=== PATIENT | female | born 1930 | race Caucasian/White ===

== ENCOUNTER 2016-09-21 16:44 | Inpatient (IN) | payer MEDICARE, BC ==
[~2016-09-21] VITALS: Ht 149.9 cm; Wt 47.6 kg
--- NOTE | 2016-09-21 16:50 | NUR ---
PT BIB [facility] S/P WITNESSED ATRAUMATIC SYNCOPE. REPORTS NAUSEA PRIOR TO SYNCOPE BUT NO COMPLAINTS NOW. STATES "I FEEL FINE". NAD NOTED. RESP EVEN UNLABORED. SKIN WARM NONDIAPHORETIC. NO NEURO DEFICITS. IN ER BED 09 ON MONITOR.
[2016-09-21] MEDS ORDERED: SIMV10TA6 PO (17:15)
[2016-09-21] MEDS ORDERED: LATA2.5D7 EACHEYE (17:15)
[2016-09-21] MEDS ORDERED: LOSA1TAB36 PO (17:15)
[2016-09-21] MEDS ORDERED: CHOL100044 PO (17:18)
[2016-09-21] MEDS ORDERED: CALC500T52 PO (17:18)
[2016-09-21] MEDS ORDERED: MULT-659 PO (17:18)
[2016-09-21] MEDS ORDERED: ASPI81TA2 PO (17:18)
[2016-09-21 17:28] LABS: BASOPHILS # (AUTO) 0.1 /CMM (0.0-0.2); BASOPHILS % (AUTO) 0.7 % (0.0-2.0); EOSINOPHILS # (AUTO) 0.1 /CMM (0.0-0.7); EOSINOPHILS % (AUTO) 0.9 % (0.0-6.0); HEMATOCRIT 36 % (33-45); HEMOGLOBIN 12.4 g/dL (11.5-14.8); LYMPHOCYTES # (AUTO) 1.3 /CMM (0.8-4.8); LYMPHOCYTES % (AUTO) 11.2 % (20.0-44.0); MEAN CORPUSCULAR HEMOGLOBIN 32 PG (26.0-33.0); MEAN CORPUSCULAR HGB CONC 35 g/dl (31.0-36.0); MEAN CORPUSCULAR VOLUME 93 fL (82-100); MONOCYTES # (AUTO) 0.7 /CMM (0.1-1.30); MONOCYTES % (AUTO) 6.4 % (2.0-12.0); NEUTROPHILS # (AUTO) 9.3 /CMM (1.8-8.9); NEUTROPHILS % (AUTO) 80.8 % (43.0-81.0); PLATELET COUNT (AUTO) 228 /CMM (150-450); RDW COEFFICIENT OF VARIATION 13.7 (11.5-15.0); RED BLOOD CELL COUNT(AUTO) 3.83 MIL/uL (4.0-5.2); WHITE BLOOD COUNT (AUTO) 11.5 K/uL (4.3-11.0)
[2016-09-21] MEDS ORDERED: IV NS 0.9% 1,000 ML BAG IV ONE ×2 (17:30→18:30)
[2016-09-21] MEDS ORDERED: IV NS 0.9% 1,000 ML ONE ×2 (17:30→18:46)
[2016-09-21] MEDS ORDERED: IV SET PRIMARY 1 EA INFUS.SET MC ONE ×2 (17:30→18:46)
--- NOTE | 2016-09-21 17:39 | NUR ---
TRANSPORTED TO CT IN STABLE CONDITION. NAD NOTED. VSS.
[2016-09-21 17:44] LABS: CALCIUM, SERUM 8.2 mg/dL (8.5-10.1); CARBON DIOXIDE 26 mmol/L (21-32); CHLORIDE 106 mmol/L (98-107); CREATININE 1.2 mg/dL (0.6-1.3); GLUCOSE 116 mg/dL (74-106); INR 0.95 (0.87-1.13); POTASSIUM 4.2 mmol/L (3.5-5.1); PROTHROMBIN TIME 9.9 SECS (9.5-12.7); SODIUM SERUM 138 mmol/L (136-145); UREA NITROGEN, BLOOD 28 mg/dL (7-18)
[2016-09-21 18:13] LABS: TROPONIN I < 0.017 ng/mL (0.00-0.056)
--- NOTE | 2016-09-21 18:34 | NUR ---
RESTING QUIETLY, NAD NOTED. VSS. SON AT BEDSIDE.
--- NOTE | 2016-09-21 18:49 | NUR ---
CALLED [employer] HE[facility] SYSTEMS ANALYST WAS PAGED.
--- NOTE | 2016-09-21 19:34 | NUR ---
REPORT GIVEN TO RVI RN FOR ADMISSION
--- NOTE | 2016-09-21 19:59 | NUR ---
CALLED [facility] STUDENT SUCCESS COACH WAS REPAGED.
--- NOTE | 2016-09-21 20:08 | NUR ---
[facility] CALLED BACK; SPOKE WITH VICTORIA MARTÍNEZ
[2016-09-21 20:15] VITALS: BP 157/65
[2016-09-21 20:20] VITALS: BP 157/65
--- NOTE | 2016-09-21 20:20 | NUR ---
RN NOTES RECEIVED PATIENT FROM ER FOR DX SYNCOPE. AO X 3, ABLE TO MAKE NEEDS KNOWN. NO SIGNS OF ACUTE DISTRESS NOTED. DENIES ANY PAIN, DIZZINESS, LIGHTHEADEDNESS AT THIS TIME. IV SITE PATENT, INTACT; FLUSHED. SKIN INTACT. ON LOW BED WITH BILATERAL UPPER SIDE RAILS UP. CALL LIGHT WITHIN EASY REACH. SAFETY REMINDERS GIVEN. WAITING FOR ADMITTING ORDERS. WILL CONTINUE TO MONITOR.
--- NOTE | 2016-09-21 20:20 | NUR ---
PT TRANSPORTED TO [facility] IN STABLE CONDITION VIA ACLS PROTOCOL. VSS. NAD NOTED. SON AT BEDSIDE.
[2016-09-21] MEDS ORDERED: IV NS 0.9% 1,000 ML IV PRN (21:08)
[2016-09-21] MEDS ORDERED: MAG HYDROX/AL HYDROX/SIMETH 30 ML UDC PO PRN (21:30)
[2016-09-21] MEDS ORDERED: Z GUARD REMEDY 2 OZ OINT TP PRN (21:30)
[2016-09-21] MEDS ORDERED: HYDROCODONE/APAP 5/325MG 1 EACH TABLET PO PRN (21:30)
[2016-09-21] MEDS ORDERED: MAGNESIUM HYDROXIDE 30 ML UDC PO PRN (21:30)
[2016-09-21] MEDS ORDERED: ONDANSETRON HCL/PF 4 MG/2 ML VIAL IVP PRN (21:30)
[2016-09-22] VITALS (8 sets, daily range): BP systolic 125–148; BP diastolic 66–80
[2016-09-22 03:22] LABS: BASOPHILS # (AUTO) 0.1 /CMM (0.0-0.2); BASOPHILS % (AUTO) 0.6 % (0.0-2.0); EOSINOPHILS # (AUTO) 0.2 /CMM (0.0-0.7); EOSINOPHILS % (AUTO) 2.3 % (0.0-6.0); HEMATOCRIT 38 % (33-45); LYMPHOCYTES # (AUTO) 2.6 /CMM (0.8-4.8); LYMPHOCYTES % (AUTO) 26.1 % (20.0-44.0); MEAN CORPUSCULAR HEMOGLOBIN 31 PG (26.0-33.0); MEAN CORPUSCULAR HGB CONC 34 g/dl (31.0-36.0); MEAN CORPUSCULAR VOLUME 93 fL (82-100); MONOCYTES # (AUTO) 0.9 /CMM (0.1-1.30); MONOCYTES % (AUTO) 9.4 % (2.0-12.0); NEUTROPHILS # (AUTO) 6.2 /CMM (1.8-8.9); NEUTROPHILS % (AUTO) 61.6 % (43.0-81.0); PLATELET COUNT (AUTO) 229 /CMM (150-450); RDW COEFFICIENT OF VARIATION 14.9 (11.5-15.0); RED BLOOD CELL COUNT(AUTO) 4.13 MIL/uL (4.0-5.2)
[2016-09-22 03:34] LABS: CALCIUM, SERUM 8.9 mg/dL (8.5-10.1); CARBON DIOXIDE 30 mmol/L (21-32); CHLORIDE 106 mmol/L (98-107); CREATININE 0.9 mg/dL (0.6-1.3); GLUCOSE 98 mg/dL (74-106); MAGNESIUM 1.8 mg/dL (1.8-2.4); PHOSPHORUS 3.8 mg/dL (2.5-4.9); POTASSIUM 4.1 mmol/L (3.5-5.1); SODIUM SERUM 139 mmol/L (136-145); UREA NITROGEN, BLOOD 25 mg/dL (7-18)
--- NOTE | 2016-09-22 06:57 | NUR ---
RN NOTES PATIENT ASLEEP, EASILY AROUSABLE. RESPIRATIONS EVEN. NO SIGNS OF PAIN NOTED. SAFETY PRECAUTIONS AND COMFORT MEASURES IN PLACE. WILL GIVE REPORT TO DAY SHIFT FOR CONTINUITY OF CARE.
--- NOTE | 2016-09-22 07:40 | NUR ---
DIE POLISHER OPEN NOTES RECEIVED REPORT FROM TIRE ADJUSTER NURSE. PATIENT IS IN BED, ALERT AND ORIENTED TO NAME, PLACE AND TIME. NO SIGNS AND SYMPTOMS OF DISTRESS. DENIED PAIN. BED IN LOW POSITION, LOCKED AND 2 SIDE RAILS ARE UP. WILL CONTINUE TO MONITOR ANS ASSESS PATIENT CONDITION THROUGH OUT MY SHIFT
[2016-09-22 08:38] LABS: THYROID STIMULATING HORMONE 1.186 uIU/mL (0.358-3.74)
[2016-09-22] MEDS ORDERED: SIMVASTATIN 10 MG TABLET PO SCH (09:00)
--- NOTE | 2016-09-22 09:00 | NUR ---
LIPITOR NOT ADMINISTERED. PM MEDS. WILL NOTIFY
[2016-09-22] MEDS: IV NS 0.9% 1,000 ML IV PRN ×2 (09:03→14:38)
[2016-09-22] MEDS: ASPIRIN 81 MG TAB.CHEW PO SCH (09:05)
[2016-09-22] MEDS: PANTOPRAZOLE 40 MG TABLET.DR PO SCH (09:06)
[2016-09-22] MEDS: CALCIUM CARBONATE (1250) 500 MG TABLET PO SCH (09:06)
[2016-09-22] MEDS: CHOLECALCIFEROL 1,000 UNIT TABLET (VIT D3) PO SCH (09:06)
[2016-09-22] MEDS: HEPARIN SODIUM, PORCINE 5000 UNITS/1 ML VIAL SQ SCH ×2 (09:13→21:30)
[2016-09-22] MEDS: ACETAMINOPHEN 325 MG TABLET PO PRN ×2 (09:23→16:26)
--- NOTE | 2016-09-22 10:22 | NUR ---
GLASS BEVELER NOTES DC TELEMETRY PER DR. CORNELL.
[2016-09-22] MEDS ORDERED: hydrALAZINE HCL 25 MG TABLET PO PRN (13:30)
[2016-09-22] MEDS ORDERED: SOD FERRIC GLUC 125 MG in IV NS 0.9% 100 ML IV SCH (14:00)
[2016-09-22] MEDS ORDERED: SECONDARY IV SET 1 EA INFUS.SET MC ONE (14:39)
[2016-09-22 16:29] LABS: APPEARANCE,URINE CLEAR (CLEAR); BILIRUBIN,URINE NEGATIVE (NEGATIVE); BLOOD, URINE NEGATIVE Ery/uL (NEGATIVE); COLOR,URINE YELLOW (YELLOW); KETONES,URINE NEGATIVE (NEGATIVE); LEUKOCYTE ESTERASE ,URINE NEGATIVE (NEGATIVE); NITRITE, URINE NEGATIVE (NEGATIVE); PH,URINE 5.5 (5.0-8.0); PROTEIN,URINE NEGATIVE (NEGATIVE); UGLUCOSE NEGATIVE (NEGATIVE); UROBILINOGEN,URINE 0.2 EU/dL (0.2)
[2016-09-22] MEDS ORDERED: LATANOPROST EYE DROP 0.005% 2.5 ML BOTTLE EACHEYE SCH (18:00)
--- NOTE | 2016-09-22 18:48 | NUR ---
RN CLOSING NOTES PATIENT IS IN BED. ALERT AND ORIENTED TO NAME, PLACE AND TIME. NO SIGNS AND SYMPTOMS OF DISTRESS. ALL NURSING NEEDS ANTICIPATED. PATIENT KEPT CLEAN AND DRY. DENIED PAIN. BED IN LOW POSITION, LOCKED AND TWO SIDE RAILS ARE UP. IV SITE IS INTACT AND PATENT. CAROTIS FUPLEX AND ECHO COMPLETED, RESULTS ARE PENDING. WILL ENDORSE TO SAFETY SCIENTIST NURSE Addendum: 09/22/16 at 1853 by ALMA ROBBINS RN TYPO CORRECTION: CAROTID DUPLEX AND ECHO COMPLETED, RESULTS ARE PENDING.
--- NOTE | 2016-09-22 19:35 | NUR ---
MS/RN NOTES RECEIVED PT. LYING IN BED. AWAKE, ALERT AND ORIENTED X3. BREATHING EVEN AND UNLABORED ON ROOM AIR. NO SOB, RESPIRATORY DISTRESS OR COMPLAINTS OF PAIN NOTED AT THIS TIME. PT. WITH LEFT FOREARM 22 GAUGE PERIPHERAL IV PRESENT, PATENT AND INTACT ADMINISTERING TO PT. NS @ 200ML/HR. BED IN LOWEST POSITION, SIDE RAILS UP X2, CALL LIGHT WITHIN REACH, WILL CONTINUE TO MONITOR.
[2016-09-22] MEDS: SIMVASTATIN 10 MG TABLET PO SCH (21:29)
--- NOTE | 2016-09-23 06:25 | NUR ---
MS/RN NOTES PT. LYING IN BED RESTING. BREATHING EVEN AND UNLABORED ON ROOM AIR. NO SOB, RESPIRATORY DISTRESS OR COMPLAINTS OF PAIN NOTED AT THIS TIME. PT. WITH LEFT FOREARM 22 GAUGE IV SALINE LOCK PRESENT, PATENT AND INTACT. ALL PT. NEEDS MET. BED IN LOWEST POSITION, SIDE RAILS UP X2, CALL LIGHT WITHIN REACH, WILL ENDORSE TO DAYSHIFT NURSE FOR CONTINUITY OF CARE.
--- NOTE | 2016-09-23 07:15 | NUR ---
MS RN NOTES RECEIVED PATIENT IN BED, A/O X3. BREATHING EVEN AND NON LABORED. APPEARS COMFORTABLE IN BED, NO SOB. CALL LIGHT WITHIN REACH. WILL CONT TO MONITOR.
[2016-09-23 07:17] LABS: BASOPHILS # (AUTO) 0.1 /CMM (0.0-0.2); BASOPHILS % (AUTO) 0.5 % (0.0-2.0); EOSINOPHILS # (AUTO) 0.2 /CMM (0.0-0.7); EOSINOPHILS % (AUTO) 2.5 % (0.0-6.0); HEMATOCRIT 33 % (33-45); HEMOGLOBIN 11.1 g/dL (11.5-14.8); LYMPHOCYTES % (AUTO) 20.4 % (20.0-44.0); MEAN CORPUSCULAR HEMOGLOBIN 32 PG (26.0-33.0); MEAN CORPUSCULAR HGB CONC 34 g/dl (31.0-36.0); MEAN CORPUSCULAR VOLUME 93 fL (82-100); MONOCYTES # (AUTO) 0.8 /CMM (0.1-1.30); MONOCYTES % (AUTO) 8.7 % (2.0-12.0); NEUTROPHILS # (AUTO) 6.5 /CMM (1.8-8.9); NEUTROPHILS % (AUTO) 67.9 % (43.0-81.0); PLATELET COUNT (AUTO) 199 /CMM (150-450); RDW COEFFICIENT OF VARIATION 15.1 (11.5-15.0); WHITE BLOOD COUNT (AUTO) 9.6 K/uL (4.3-11.0)
[2016-09-23 07:42] LABS: CALCIUM, SERUM 8.6 mg/dL (8.5-10.1); CARBON DIOXIDE 26 mmol/L (21-32); CHLORIDE 109 mmol/L (98-107); CREATININE 0.6 mg/dL (0.6-1.3); GLUCOSE 90 mg/dL (74-106); MAGNESIUM 1.5 mg/dL (1.8-2.4); PHOSPHORUS 3.2 mg/dL (2.5-4.9); POTASSIUM 4.1 mmol/L (3.5-5.1); SODIUM SERUM 144 mmol/L (136-145); UREA NITROGEN, BLOOD 17 mg/dL (7-18)
[2016-09-23 08:00] VITALS: BP 121/70
[2016-09-23] MEDS: ASPIRIN 81 MG TAB.CHEW PO SCH (08:36)
[2016-09-23] MEDS: CHOLECALCIFEROL 1,000 UNIT TABLET (VIT D3) PO SCH (08:36)
[2016-09-23] MEDS: SIMVASTATIN 10 MG TABLET PO SCH (08:36)
[2016-09-23] MEDS: PANTOPRAZOLE 40 MG TABLET.DR PO SCH (08:36)
[2016-09-23] MEDS: CALCIUM CARBONATE (1250) 500 MG TABLET PO SCH (08:36)
[2016-09-23] MEDS: ACETAMINOPHEN 325 MG TABLET PO PRN (08:37)
[2016-09-23] MEDS ORDERED: SECONDARY IV SET 1 EA INFUS.SET MC ONE (09:31)
[2016-09-23] MEDS: Magnesium 1GM/D5W 100ML PREMIX 100 ML IV SCH ×2 (09:38→11:38)
[2016-09-23] MEDS: HEPARIN SODIUM, PORCINE 5000 UNITS/1 ML VIAL SQ SCH (09:47)
--- NOTE | 2016-09-23 14:31 | NUR ---
PATIENT TO BE DISCHARGED HOME ORDERED. PATIENT MADE AWARE.
--- NOTE | 2016-09-23 15:30 | NUR ---
[facility] NOT AVAILABLE. CALLED PHARMACY, WILL FOLLOW UP.
[2016-09-23 16:00] VITALS: BP 128/74
--- NOTE | 2016-09-23 16:18 | NUR ---
[facility] STILL NOT AVAILABLE, PHARMACY INFORMED.
--- NOTE | 2016-09-23 16:29 | NUR ---
MS RN DISCHARGED PATIENT HAS BEEN CLEARED FOR DISCHARGE HOME BY MD. PATIENT IS AMBULATORY, NO EPISODE OF SYNCOPE DURING THE SHIFT. SKIN INTACT, IV IN RIGHT HAND REMOVED, GAUZE APPLIED, NO BLEEDING NOTED. DISCHARGE INSTRUCTION GIVEN TO THE PATIENT AND SON-MARGY, VERBALIZED UNDERSTANDING. BELONGINGS CHECKED AND SEND WITH THE PATIENT UPON DC. PATIENT LEFT HOSP IN STABLE CONDITION VIA PRIVATE CAR ACCOMPANIED BY SONAMANDA.
== END 2016-09-23 15:30 | disposition home or self-care (01) | DRG 684 ==
LOC: ER 16:45 → TELE 19:08 → MED 09-22 08:54
PROVIDERS: ADMIT Internal Medicine; ATTEND Internal Medicine
DX: N17.0 Acute kidney failure with tubular necrosis (principal); R55 Syncope and collapse; I25.10 Atherosclerotic heart disease of native coronary artery without angina pectoris; Z79.899 Other long term (current) drug therapy; I25.2 Old myocardial infarction; F17.210 Nicotine dependence, cigarettes, uncomplicated; I10 Essential (primary) hypertension; E78.5 Hyperlipidemia, unspecified; E86.0 Dehydration; Z86.73 Personal history of transient ischemic attack (TIA), and cerebral infarction without residual deficits; D50.9 Iron deficiency anemia, unspecified; E83.42 Hypomagnesemia
CPT/HCPCS: 36415; 70450-TC; 71010-TC; 80048-TC; 80061-TC; 80305; 81000-TC; 82728-TC; 83540-TC; 83735-TC; 84100-TC; 84439-TC; 84443-TC; 84484-TC; 85025-TC; 85730-TC; 87081-TC; 93307-TC; 93880-TC; A4606; J1644; J2916; J3475; J7030; Z7610